=== PATIENT | male | born 1985 | race Caucasian/White ===

== ENCOUNTER 2021-05-06 21:02 | Emergency (ER) | payer SELFPAY ==
[~2021-05-06] VITALS: Ht 175.3 cm; Wt 72.6 kg
[2021-05-06] MEDS ORDERED: SODIUM CHLORIDE 0.9% 1000ML 1,000 ML IV STA ×2 (21:17→21:19)
[2021-05-06] MEDS ORDERED: DIAZEPAM INJ 5 MG/ML 2 ML IV ONE (21:30)
[2021-05-06] MEDS ORDERED: DIAZEPAM INJ 5 MG/ML 2 ML ONE (21:36)
[2021-05-06] MEDS ORDERED: SODIUM CHLORIDE 0.9% 1000ML 1,000 ML ONE (21:36)
[2021-05-06] MEDS ORDERED: CHLORDIAZEPOXID25 MG PO (22:08)
[2021-05-06] MEDS ORDERED: PANTOPRAZOLE SO40 MG PO (22:08)
[2021-05-06] MEDS ORDERED: ONDANSETRON ODT4 MG PO (22:08)
[2021-05-06] MEDS ORDERED: CYCLOBENZAPRINE5 MG PO (22:08)
[2021-05-06] MEDS ORDERED: KETOROLAC TROMETHAMINE 60 MG/2 ML VIAL IM ONE (22:30)
[2021-05-06 22:35] VITALS: BP 150/65
[2021-05-06] MEDS ORDERED: KETOROLAC TROMETHAMINE 30 MG/ML VIAL ONE (22:37)
== END 2021-05-06 22:35 | disposition home or self-care (01) ==
LOC: FSED 21:20
DX: K92.0 Hematemesis (principal); F10.10 Alcohol abuse, uncomplicated; M54.2 Cervicalgia; G89.29 Other chronic pain
CPT/HCPCS: 80048; 80076; 85025; 96372; 96374; 96376; 99283; C9113; J1885; J3360; J7030